=== PATIENT | female | born 1960 | race Caucasian/White ===

== ENCOUNTER 2017-03-04 12:49 | Outpatient (CLI) | payer OTHER ==
--- NOTE | 2017-03-04 14:21 | RAD ---
CHEST PA AND LATERAL 2 VIEWS: Date: 03/04/17 HISTORY: 56-year-old female with dyspnea. COMPARISON: 04/29/13. FINDINGS: Heart size is within normal limits. The lungs are clear. No pneumonia, edema, or pleural effusion. IMPRESSION: No acute intrathoracic disease. Stable from prior study. No evidence for pneumonia. POS: [facility]
== END 2017-03-04 12:50 | disposition home or self-care (01) ==
LOC: RAD 12:49
PROVIDERS: ATTEND Internal Medicine Pulmonary Disease
DX: R06.00 Dyspnea, unspecified (principal)
CPT/HCPCS: 71046

== ENCOUNTER 2019-04-29 12:30 | Emergency (ER) | payer OTHER ==
--- NOTE | 2019-04-29 13:25 | CT ---
CT BRAIN WITHOUT CONTRAST: HISTORY:Level 2 trauma FINDINGS: No evidence of acute infarct, hemorrhage, midline shift or abnormal extra-axial fluid collections is seen. The ventricular size is appropriate and the basilar cisterns are patent. The bony calvarium is intact. The visualized paranasal sinuses and mastoid air cells are well aerated. IMPRESSION: No CT evidence of acute intracranial process. Discussed over the telephone with ER physician Dr. Omar Parra at 1:21 PM
--- NOTE | 2019-04-29 13:27 | CT ---
CT CERVICAL SPINE WITH CORONAL AND SAGITTAL REFORMATIONS AND NO IV CONTRAST: HISTORY: Level 2 trauma, neck pain FINDINGS: Multilevel degenerative changes are present. There are postop changes of anterior spinal fusion with plate and screws in good position and alignment at C4-5-6 level. No fracture, subluxation or facet malalignment is identified. No prevertebral soft tissue swelling is apparent. The visualized lung apices are unremarkable. IMPRESSION: No CT evidence for fracture or traumatic subluxation. Discussed over the telephone with ER physician Dr. Omar Parra at 1:21 PM
--- NOTE | 2019-04-29 13:58 | CT ---
CT CHEST WITH IV CONTRAST CT ABDOMEN WITH IV CONTRAST CT PELVIS WITH IV CONTRAST CORONAL AND SAGITTAL REFORMATIONS OF THE THORACOLUMBAR SPINE: HISTORY: Level II trauma. Chest pain, abdominal pain, back pain. FINDINGS: No mediastinal hematoma is seen. No intimal flap is noted in the aorta. No pleural or pericardial e ffusions are identified. No pneumothoraces or pulmonary contusions are seen. There is a 9 mm low-de nsity lesion in the left lobe of the liver. There is a 9 mm low-density lesion in the left lobe of t he thyroid gland better visualized on the thyroid ultrasound of 02/06/2014. The liver, spleen, pancreas, adrenal glands, and kidneys are intact. The patient is post cholecystec kinza. No free air or free fluid is seen in the abdomen or pelvis. The patient is post hysterectomy as well. The small bowel loops are not abnormally dilated. A small fat-containing umbilical hernia is present. There are degenerative changes in the thoracolumbar spine and hip joints. No acute fracture or sublu xation is seen. There are postop changes of posterior spinal fusion and metallic hardware at L3, L4, and L5 levels. IMPRESSION: No CT evidence of acute intrathoracic or solid organ injury. Discussed over the telephone with the ER physician, Dr. Omar Parra, at 1:32 p.m. CODE CR POS: [facility]
== END 2019-04-29 14:10 | disposition home or self-care (01) ==
LOC: ERS 12:30
DX: S29.012A Strain of muscle and tendon of back wall of thorax, initial encounter (principal); S50.319A Abrasion of unspecified elbow, initial encounter; S40.029A Contusion of unspecified upper arm, initial encounter; S20.20XA Contusion of thorax, unspecified, initial encounter; G43.909 Migraine, unspecified, not intractable, without status migrainosus; M54.2 Cervicalgia; E66.9 Obesity, unspecified; F41.9 Anxiety disorder, unspecified; F32.9 Major depressive disorder, single episode, unspecified; V43.62XA Car passenger injured in collision with other type car in traffic accident, initial encounter
CPT/HCPCS: 70450; 71260; 72125; 74177

== ENCOUNTER 2019-09-19 06:31 | Outpatient (CLI) | payer OTHER ==
[2019-09-20 12:04] LABS: SARS-CoV-2 MS2 Positive; SARS-CoV-2 N Gene Negative; SARS-CoV-2 S Gene Negative; SARS-CoV-2 by NAA Not Detected (NotDetected); SARS-CoV-2 orf1ab Negative
== END 2019-09-19 06:32 | disposition home or self-care (01) ==
LOC: LABBT 06:31
PROVIDERS: ATTEND Internal Medicine
DX: Z01.812 Encounter for preprocedural laboratory examination (principal); Z11.59 Encounter for screening for other viral diseases; K52.9 Noninfective gastroenteritis and colitis, unspecified; R10.84 Generalized abdominal pain; R11.0 Nausea; Z86.010 Personal history of colon polyps
CPT/HCPCS: 87635; U0003

== ENCOUNTER 2019-09-22 06:07 | Day surgery (SDC) | payer OTHER ==
[2019-09-15 12:16] VITALS: BMI 53.1
[2019-09-22] MEDS ORDERED: PROPOFOL 200 MG/20 ML VIAL ONE (09:47)
[2019-09-22] MEDS ORDERED: Lidocaine 1% PF 5 ML VIAL ONE (09:47)
--- NOTE | 2019-09-22 10:05 | OP ---
DATE OF PROCEDURE: 09/22/2019 CREDIT INTERVIEWER SURGEON: None. PROCEDURES PERFORMED: 1. Esophagogastroduodenoscopy with biopsies. 2. Colonoscopy with biopsies and snare polypectomy. INDICATIONS: 1. Chronic diarrhea. 2. Generalized abdominal pain. 3. Nausea. 4. Personal history of colon polyps, with last colonoscopy in 2014. MEDICATIONS: See Anesthesia record. FINDINGS: After discussion of the risks, benefits, and alternatives of the procedure, informed consent was obtained and witnessed. Pre-endoscopic cardiopulmonary examination was satisfactory. Time-out was performed before sedation was achieved. Sedation was achieved with Anesthesia assistance in the endoscopy unit. A Pentax adult upper endoscope was placed into the oropharynx and passed through the cricopharyngeus under direct visualization. The esophageal mucosa appeared normal throughout with a normal-appearing Z-line. The endoscope was advanced into the stomach. Forward and retroflexed views of the entire gastric mucosa were obtained. In the gastric body, there was erosive gastritis, characterized by several shallow erosions, erythema, and friability. There was a small ulceration measuring about 6 mm in diameter, which was clean based and appears benign, also in this area of the gastric body along the greater curvature. Gastric biopsies were obtained to rule out H pylori infection. The endoscope was advanced through the pylorus and into the first and second portions of the duodenum, which appeared normal. Duodenal biopsies were obtained to rule out celiac disease. The upper endoscope was completely withdrawn and the patient was repositioned. Digital rectal exam was performed, which was unremarkable. A Pentax adult colonoscope was inserted into the anus and passed forward to the cecum in the usual fashion. The cecal base was identified by the appendiceal orifice as well as the ileocecal valve. The terminal ileum was intubated and the ileal mucosa appeared normal. The colonoscope was slowly withdrawn in a gradual and circumferential manner with careful examination of the entire colonic mucosa. The quality of the prep was good. In the transverse colon, there were 3 sessile polyps measuring from 2 to 6 mm in diameter. These were all completely removed with cold snare and retrieved for pathology. In the sigmoid colon, there was one other polyp measuring 2 mm in diameter. This was completely removed with cold snare and retrieved for pathology. There is some mild diverticulosis in the sigmoid colon. The colonic mucosa otherwise appears normal throughout. I obtained random biopsies from the right and left side of the colon to rule out microscopic colitis. Retroflexion in the rectum was unremarkable. The colonoscope was completely withdrawn and the patient allowed to recover. The patient tolerated the procedure well. There were no immediate postprocedure complications. IMPRESSION: 1. Erosive gastritis with small ulcer in the gastric body along the greater curvature. Gastric biopsies obtained to rule out H pylori. 2. Otherwise, normal EGD, with duodenal biopsies obtained to rule out celiac disease. 3. Three small transverse colon polyps, all completely removed with cold snare and retrieved for pathology. 4. One small sigmoid colon polyp, completely removed with cold snare and retrieved for pathology. 5. Mild sigmoid diverticulosis. 6. Otherwise, normal colonoscopy to the terminal ileum, with random colon biopsies obtained to rule out microscopic colitis. RECOMMENDATIONS: 1. Follow up biopsy results. 2. Start pantoprazole 40 mg twice daily. 3. Avoid nonsteroidal anti-inflammatory drugs. 4. Follow up in the [facility] in 1 month with myself or physician practice assistant. 5. Repeat colonoscopy interval to be based on pathology results. Job ID: [id number]
== END 2019-09-22 09:35 | disposition home or self-care (01) ==
LOC: SDC 06:07
PROVIDERS: ATTEND Internal Medicine
DX: D12.3 Benign neoplasm of transverse colon (principal); K57.30 Diverticulosis of large intestine without perforation or abscess without bleeding; K25.9 Gastric ulcer, unspecified as acute or chronic, without hemorrhage or perforation; K29.60 Other gastritis without bleeding; K52.9 Noninfective gastroenteritis and colitis, unspecified; R11.0 Nausea; R10.84 Generalized abdominal pain; E07.9 Disorder of thyroid, unspecified; F41.9 Anxiety disorder, unspecified; F32.9 Major depressive disorder, single episode, unspecified; E66.9 Obesity, unspecified; Z68.43 Body mass index [BMI] 50.0-59.9, adult; Z86.010 Personal history of colon polyps; Z79.899 Other long term (current) drug therapy; Z88.5 Allergy status to narcotic agent
CPT/HCPCS: 88305; 88312; J2704

== ENCOUNTER 2022-04-04 07:24 | Outpatient (CLI) | payer BC | END 2022-04-04 07:25 | disposition home or self-care (01) | LOC: TBSIIMAG 07:24 | PROVIDERS: ATTEND Orthopaedic Surgery | DX: M54.50 Low back pain, unspecified (principal); M54.6 Pain in thoracic spine | CPT/HCPCS: 72146; 72148 ==

== ENCOUNTER 2024-12-14 13:13 | Inpatient (IN) | payer BC ==
[2024-12-14] MEDS ORDERED: Acetaminophen 325 MG TAB PO PRN (17:00)
[2024-12-14] MEDS ORDERED: Ondansetron PF 4 MG/2 ML Vial IVP PRN (17:00)
[2024-12-14] MEDS ORDERED: Bisacodyl 10 MG SUPP PR PRN (17:00)
[2024-12-14] MEDS ORDERED: Electrolyte Replacement Protocol 1 EACH FS ONE (17:10)
[2024-12-14 17:29] LABS: Actual Bicarbonate (HCO3a) 19.5 mEq/L (22-28); Base Excess (BEa) -7.6 mEq/L (-2.0 to +3.0); CO2 Tension 46.6 mmHg (35.0-45.0); Calcium, Ionized (arterial) 1.30 mmol/L (1.12-1.30); Hematocrit-ABG 32 % (36.0-47.0); Hemoglobin (Hb) 11.0 g/dL (12.0-16.0); O2 Tension (PaO2), arterial 88.7 mmHg (> 80.0); Potassium - ABG Lab 4.21 mmol/L (3.70-5.30); pH, Arterial 7.240 (7.35-7.45)
[2024-12-14 17:30] LABS: Puncture Site Right Radial artery
[2024-12-14] MEDS ORDERED: Fentanyl BOLUS 100 ML IVPB PRN (17:30)
[2024-12-14] MEDS ORDERED: Propofol BOLUS 1,000 MG/100 ML VIAL IV PRN (17:30)
[2024-12-14] MEDS ORDERED: DISCONTINUE PREVIOUS NARCOTIC PAIN MEDICATIONS AND BENZODIAZEPINES FS SCH (17:30)
[2024-12-14 17:31] LABS: ALV-art Gradient 138.250 mmHg (0-20)
[2024-12-14 18:34] VITALS: BMI 56.2
[2024-12-14 19:50] LABS: ALT (SGPT) 22 U/L (Less than 34); AST (SGOT) 32 U/L (11-34); Albumin 2.6 g/dL (3.1-4.5); Alkaline Phosphatase 140 U/L (40-110); Anion Gap 17 mmol/L (10-20); BUN (Urea Nitrogen) 66 mg/dL (9.8-20.1); Bilirubin, Total 0.5 mg/dL (0.3-1.2); Calc. Creatinine Clearance 44 mL/min (70-130); Calcium 9.7 mg/dL (7.8-10.44); Carbon Dioxide 19 mmol/L (23-31); Chloride 106 mmol/L (98-107); Globulin 3.9 g/dL (2.4-3.5); Glucose 162 mg/dL (80-115); Magnesium 2.4 mg/dL (1.6-2.6); Potassium 4.4 mmol/L (3.5-5.1); Sodium 138 mmol/L (136-145)
[2024-12-14 20:22] LABS: INR-International Normal Ratio 1.2; PTT 25.2 sec (22.9-36.1); Prothrombin Time 15.5 sec (12.0-14.7)
[2024-12-14] MEDS: Famotidine/PF 20 mg/2ml Vial SLOW IVP SCH (21:48)
[2024-12-15 05:20] LABS: #Basophils 0.06 10x3/uL (0.0-0.2); #Eosinophils 0.08 10x3/uL (0.0-0.7); #Monocytes 1.30 10x3/uL (0.11-0.59); #Neutrophils 18.05 10x3/uL (1.40-6.50); %Basophils 0.3 % (0.0-1.0); %Eosinophils 0.4 % (0.0-10.0); %Lymphocytes 7.5 % (21.0-51.0); %Monocytes 6.0 % (0.0-10.0); %Neutrophils 83.3 % (42.0-75.0); Hematocrit 30.6 % (36.0-47.0); Hemoglobin 9.5 g/dL (12.0-16.0); Mean Corpuscular Hemoglobin 30.4 pg (27.0-31.0); Mean Corpuscular Volume 98.1 fL (78.0-98.0); Platelet Count 256 10x3/uL (130-400); Red Blood Cell (RBC) Count 3.12 mill/uL (4.20-5.40); White Blood Cell (WBC) Count 21.67 10x3/uL (4.8-10.8)
[2024-12-15 05:40] LABS: Anion Gap 13 mmol/L (10-20); BUN (Urea Nitrogen) 64 mg/dL (9.8-20.1); Calc. Creatinine Clearance 45 mL/min (70-130); Calcium 9.2 mg/dL (7.8-10.44); Carbon Dioxide 20 mmol/L (23-31); Chloride 108 mmol/L (98-107); Glucose 144 mg/dL (80-115); Potassium 4.2 mmol/L (3.5-5.1); Sodium 137 mmol/L (136-145)
[2024-12-15 07:38] LABS: Actual Bicarbonate (HCO3a) 20.2 mEq/L (22-28); Base Excess (BEa) -4.7 mEq/L (-2.0 to +3.0); CO2 Tension 36.8 mmHg (35.0-45.0); Calcium, Ionized (arterial) 1.29 mmol/L (1.12-1.30); Hematocrit-ABG 31 % (36.0-47.0); Hemoglobin (Hb) 10.7 g/dL (12.0-16.0); Potassium - ABG Lab 4.41 mmol/L (3.70-5.30); pH, Arterial 7.358 (7.35-7.45)
[2024-12-15 07:40] LABS: ALV-art Gradient 322.400 mmHg (0-20); O2 Tension (PaO2), arterial 59.4 mmHg (> 80.0); Puncture Site Right Radial artery
[2024-12-15] MEDS: Enoxaparin 30 MG (0.3 mL) SYRINGE SC SCH (07:57)
[2024-12-15] MEDS: Pantoprazole 40 MG VIAL IVP SCH (07:57)
[2024-12-15] MEDS: Furosemide 40 MG (4 mL) VIAL SLOW IVP SCH (09:17)
[2024-12-15 15:23] LABS: Bacteria/HPF 1+ HPF (None Seen); Glucose, Urine (Dipstick) Normal (Negative); Leukocyte Negative Leu/uL (Negative); Protein, Urine (Dipstick) Negative (Neg-Trace); RBC/HPF 0-3 HPF (0-3); Specific Gravity, Urine 1.010 (1.002-1.036); WBC/HPF 0-3 HPF (0-3)
[2024-12-15] MEDS: Furosemide 40 MG (4 mL) VIAL IVP SCH (16:16)
[2024-12-16 05:10] LABS: #Basophils 0.06 10x3/uL (0.0-0.2); #Eosinophils 0.08 10x3/uL (0.0-0.7); #Monocytes 1.09 10x3/uL (0.11-0.59); #Neutrophils 17.19 10x3/uL (1.40-6.50); %Basophils 0.3 % (0.0-1.0); %Eosinophils 0.4 % (0.0-10.0); %Lymphocytes 6.3 % (21.0-51.0); %Monocytes 5.4 % (0.0-10.0); %Neutrophils 85.2 % (42.0-75.0); Hematocrit 34.2 % (36.0-47.0); Hemoglobin 10.6 g/dL (12.0-16.0); Mean Corpuscular Hemoglobin 30.5 pg (27.0-31.0); Mean Corpuscular Volume 98.6 fL (78.0-98.0); Platelet Count 249 10x3/uL (130-400); Red Blood Cell (RBC) Count 3.47 mill/uL (4.20-5.40); White Blood Cell (WBC) Count 20.18 10x3/uL (4.8-10.8)
[2024-12-16 05:47] LABS: ALT (SGPT) 19 U/L (Less than 34); AST (SGOT) 19 U/L (11-34); Albumin 2.3 g/dL (3.1-4.5); Alkaline Phosphatase 106 U/L (40-110); Anion Gap 17 mmol/L (10-20); BUN (Urea Nitrogen) 67 mg/dL (9.8-20.1); Bilirubin, Total 0.3 mg/dL (0.3-1.2); Calc. Creatinine Clearance 39 mL/min (70-130); Calcium 9.4 mg/dL (7.8-10.44); Carbon Dioxide 20 mmol/L (23-31); Chloride 106 mmol/L (98-107); Globulin 3.8 g/dL (2.4-3.5); Glucose 165 mg/dL (80-115); Magnesium 2.4 mg/dL (1.6-2.6); Potassium 4.4 mmol/L (3.5-5.1); Sodium 139 mmol/L (136-145)
[2024-12-16 06:32] LABS: Actual Bicarbonate (HCO3a) 20.5 mEq/L (22-28); Base Excess (BEa) -6.0 mEq/L (-2.0 to +3.0); CO2 Tension 45.0 mmHg (35.0-45.0); Calcium, Ionized (arterial) 1.29 mmol/L (1.12-1.30); Hematocrit-ABG 32 % (36.0-47.0); Hemoglobin (Hb) 10.9 g/dL (12.0-16.0); O2 Tension (PaO2), arterial 70.0 mmHg (> 80.0); Potassium - ABG Lab 4.02 mmol/L (3.70-5.30); pH, Arterial 7.277 (7.35-7.45)
[2024-12-16 06:35] LABS: ALV-art Gradient 301.550 mmHg (0-20); Puncture Site Right Radial artery
[2024-12-16] MEDS: Metoclopramide HCl 10 MG (2 mL) VIAL IVP PRN (11:35)
[2024-12-16] MEDS ORDERED: Lactulose 20 GM (30 mL) UDCUP PO PRN (12:02)
[2024-12-16] MEDS: Senokot S 8.6-50 MG TAB PER TUBE SCH ×2 (12:10→20:41)
[2024-12-16] MEDS: Albumin 25% 25 GM (100 mL) BOT IVPB SCH ×2 (12:10→20:40)
[2024-12-16] MEDS: Furosemide 40 MG (4 mL) VIAL SLOW IVP SCH ×2 (12:11→21:24)
[2024-12-16] MEDS: Enoxaparin 30 MG (0.3 mL) SYRINGE SC SCH (20:40)
[2024-12-16] MEDS ORDERED: Senokot S 8.6-50 MG TAB PO SCH (21:00)
[2024-12-17 03:37] LABS: #Basophils Less than 0.03 10x3/uL (0.0-0.2); #Eosinophils Less than 0.03 10x3/uL (0.0-0.7); #Monocytes 0.68 10x3/uL (0.11-0.59); #Neutrophils 16.08 10x3/uL (1.40-6.50); %Basophils 0.1 % (0.0-1.0); %Eosinophils 0.0 % (0.0-10.0); %Lymphocytes 2.3 % (21.0-51.0); %Monocytes 3.9 % (0.0-10.0); %Neutrophils 93.1 % (42.0-75.0); Hematocrit 32.6 % (36.0-47.0); Hemoglobin 10.3 g/dL (12.0-16.0); Mean Corpuscular Hemoglobin 28.7 pg (27.0-31.0); Mean Corpuscular Volume 90.8 fL (78.0-98.0); Platelet Count 453 10x3/uL (130-400); Red Blood Cell (RBC) Count 3.59 mill/uL (4.20-5.40); White Blood Cell (WBC) Count 17.27 10x3/uL (4.8-10.8)
[2024-12-17 06:18] LABS: Chloride 107 mmol/L (98-107); Potassium 4.0 mmol/L (3.5-5.1); Sodium 139 mmol/L (136-145)
[2024-12-17 06:19] LABS: Calcium 9.3 mg/dL (7.8-10.44); Glucose 136 mg/dL (80-115)
[2024-12-17 06:21] LABS: Anion Gap 14 mmol/L (10-20); Carbon Dioxide 22 mmol/L (23-31)
[2024-12-17 06:23] LABS: BUN (Urea Nitrogen) 81 mg/dL (9.8-20.1); Calc. Creatinine Clearance 36 mL/min (70-130)
[2024-12-17] MEDS: Bisacodyl 10 MG SUPP PR SCH (08:15)
[2024-12-17 09:13] LABS: Actual Bicarbonate (HCO3v) 22.8 mEq/L (22-28); Base Excess -4.2 mEq/L (-2.0 to +3.0); Calcium, Ionized (venous) 1.22 mmol/L (1.16-1.32); Chloride (VBG) 106 mmol/L (98-106); Hematocrit-VBG 34 % (36.0-47.0); Hemoglobin (Hb) 11.4 g/dL (11.7-16.1); Potassium (VBG) 4.25 mmol/L (3.70-5.30); Sodium 142 mmol/L (133-146)
[2024-12-17] MEDS: Scopolamine 1 mg/72 hour Patch TD SCH (09:30)
[2024-12-17] MEDS ORDERED: Midazolam In 0.9 % NaCl/PF 100 ML IVPB SCH (16:45)
[2024-12-17] MEDS: Furosemide 40 MG (4 mL) VIAL SLOW IVP SCH (17:35)
[2024-12-18 04:10] LABS: #Basophils 0.03 10x3/uL (0.0-0.2); #Eosinophils 0.13 10x3/uL (0.0-0.7); #Monocytes 0.79 10x3/uL (0.11-0.59); #Neutrophils 16.48 10x3/uL (1.40-6.50); %Basophils 0.2 % (0.0-1.0); %Eosinophils 0.7 % (0.0-10.0); %Lymphocytes 5.0 % (21.0-51.0); %Monocytes 4.2 % (0.0-10.0); %Neutrophils 87.3 % (42.0-75.0); Hematocrit 32.5 % (36.0-47.0); Hemoglobin 10.1 g/dL (12.0-16.0); Mean Corpuscular Hemoglobin 30.6 pg (27.0-31.0); Mean Corpuscular Volume 98.5 fL (78.0-98.0); Platelet Count 228 10x3/uL (130-400); Red Blood Cell (RBC) Count 3.30 mill/uL (4.20-5.40); White Blood Cell (WBC) Count 18.88 10x3/uL (4.8-10.8)
[2024-12-18 04:35] LABS: Anion Gap 17 mmol/L (10-20); BUN (Urea Nitrogen) 86 mg/dL (9.8-20.1); Calc. Creatinine Clearance 36 mL/min (70-130); Calcium 9.3 mg/dL (7.8-10.44); Carbon Dioxide 21 mmol/L (23-31); Chloride 108 mmol/L (98-107); Glucose 177 mg/dL (80-115); Potassium 4.1 mmol/L (3.5-5.1); Sodium 142 mmol/L (136-145)
[2024-12-18] MEDS: Enoxaparin 30 MG (0.3 mL) SYRINGE SC SCH (09:19)
[2024-12-18] MEDS: Furosemide 40 MG (4 mL) VIAL SLOW IVP SCH ×2 (11:10→17:23)
[2024-12-18] MEDS ORDERED: Dextrose 50% Abboject 50 ML SYRINGE SLOW IVP PRN (12:03)
[2024-12-18] MEDS ORDERED: Glucagon 1 MG/ML KIT IM PRN (12:03)
[2024-12-19] MEDS: Furosemide 40 MG (4 mL) VIAL SLOW IVP SCH (05:43)
[2024-12-19 06:05] LABS: #Basophils 0.04 10x3/uL (0.0-0.2); #Eosinophils 0.23 10x3/uL (0.0-0.7); #Monocytes 1.10 10x3/uL (0.11-0.59); #Neutrophils 19.31 10x3/uL (1.40-6.50); %Basophils 0.2 % (0.0-1.0); %Eosinophils 1.0 % (0.0-10.0); %Lymphocytes 5.0 % (21.0-51.0); %Monocytes 5.0 % (0.0-10.0); %Neutrophils 87.1 % (42.0-75.0); Hematocrit 32.7 % (36.0-47.0); Hemoglobin 10.0 g/dL (12.0-16.0); Mean Corpuscular Hemoglobin 30.2 pg (27.0-31.0); Mean Corpuscular Volume 98.8 fL (78.0-98.0); Platelet Count 276 10x3/uL (130-400); Red Blood Cell (RBC) Count 3.31 mill/uL (4.20-5.40); White Blood Cell (WBC) Count 22.16 10x3/uL (4.8-10.8)
[2024-12-19 06:20] LABS: Anion Gap 15 mmol/L (10-20); BUN (Urea Nitrogen) 88 mg/dL (9.8-20.1); Calc. Creatinine Clearance 38 mL/min (70-130); Calcium 9.3 mg/dL (7.8-10.44); Carbon Dioxide 24 mmol/L (23-31); Chloride 109 mmol/L (98-107); Glucose 136 mg/dL (80-115); Potassium 4.1 mmol/L (3.5-5.1); Sodium 144 mmol/L (136-145)
[2024-12-19] MEDS: Heparin 5,000 UNITS/ML VIAL SC SCH (14:57)
[2024-12-20 06:03] LABS: #Basophils 0.06 10x3/uL (0.0-0.2); #Eosinophils 4.00 10x3/uL (0.0-0.7); #Monocytes 1.03 10x3/uL (0.11-0.59); #Neutrophils 16.02 10x3/uL (1.40-6.50); %Basophils 0.3 % (0.0-1.0); %Eosinophils 17.2 % (0.0-10.0); %Lymphocytes 8.1 % (21.0-51.0); %Monocytes 4.4 % (0.0-10.0); %Neutrophils 68.6 % (42.0-75.0); Hematocrit 31.5 % (36.0-47.0); Hemoglobin 9.8 g/dL (12.0-16.0); Mean Corpuscular Hemoglobin 30.3 pg (27.0-31.0); Mean Corpuscular Volume 97.5 fL (78.0-98.0); Platelet Count 321 10x3/uL (130-400); Red Blood Cell (RBC) Count 3.23 mill/uL (4.20-5.40); White Blood Cell (WBC) Count 23.32 10x3/uL (4.8-10.8)
[2024-12-20 06:26] LABS: Anion Gap 15 mmol/L (10-20); BUN (Urea Nitrogen) 83 mg/dL (9.8-20.1); Calc. Creatinine Clearance 37 mL/min (70-130); Calcium 9.3 mg/dL (7.8-10.44); Carbon Dioxide 24 mmol/L (23-31); Chloride 109 mmol/L (98-107); Glucose 106 mg/dL (80-115); Potassium 3.3 mmol/L (3.5-5.1); Sodium 145 mmol/L (136-145)
[2024-12-20 12:30] VITALS: BMI 55.5
[2024-12-21 03:22] LABS: #Basophils 0.06 10x3/uL (0.0-0.2); #Eosinophils 4.12 10x3/uL (0.0-0.7); #Monocytes 1.03 10x3/uL (0.11-0.59); #Neutrophils 16.72 10x3/uL (1.40-6.50); %Basophils 0.2 % (0.0-1.0); %Eosinophils 16.8 % (0.0-10.0); %Lymphocytes 8.9 % (21.0-51.0); %Monocytes 4.2 % (0.0-10.0); %Neutrophils 68.5 % (42.0-75.0); Hematocrit 30.7 % (36.0-47.0); Hemoglobin 9.4 g/dL (12.0-16.0); Mean Corpuscular Hemoglobin 30.4 pg (27.0-31.0); Mean Corpuscular Volume 99.4 fL (78.0-98.0); Platelet Count 333 10x3/uL (130-400); Red Blood Cell (RBC) Count 3.09 mill/uL (4.20-5.40); White Blood Cell (WBC) Count 24.46 10x3/uL (4.8-10.8)
[2024-12-21 03:43] LABS: Anion Gap 17 mmol/L (10-20); BUN (Urea Nitrogen) 82 mg/dL (9.8-20.1); Calc. Creatinine Clearance 42 mL/min (70-130); Calcium 8.9 mg/dL (7.8-10.44); Carbon Dioxide 23 mmol/L (23-31); Chloride 110 mmol/L (98-107); Glucose 129 mg/dL (80-115); Potassium 3.4 mmol/L (3.5-5.1); Sodium 147 mmol/L (136-145)
[2024-12-21 10:15] VITALS: BP 108/60
[2024-12-21 11:08] VITALS: TEMP 98.4
== END 2024-12-21 11:49 | disposition critical access hospital, planned readmission (94) | DRG 870 ==
LOC: CCU 16:58
PROVIDERS: ADMIT Hospitalist; ATTEND Internal Medicine
PROC: 4A133R1 Monitoring of Arterial Saturation, Peripheral, Percutaneous Approach (ICD-10-PCS; principal; 2024-12-14)
PROC: 3E03329 Introduction of Other Anti-infective into Peripheral Vein, Percutaneous Approach (ICD-10-PCS; 2024-12-14)
PROC: 5A1955Z Respiratory Ventilation, Greater than 96 Consecutive Hours (ICD-10-PCS; 2024-12-14)
PROC: 0DH67UZ Insertion of Feeding Device into Stomach, Via Natural or Artificial Opening (ICD-10-PCS; 2024-12-15)
PROC: 30233J1 Transfusion of Nonautologous Serum Albumin into Peripheral Vein, Percutaneous Approach (ICD-10-PCS; 2024-12-16)
DX: A41.9 Sepsis, unspecified organism (principal); I21.A1 Myocardial infarction type 2; J18.9 Pneumonia, unspecified organism; J80 Acute respiratory distress syndrome; N17.9 Acute kidney failure, unspecified; E87.20 Acidosis, unspecified; E87.1 Hypo-osmolality and hyponatremia; J44.1 Chronic obstructive pulmonary disease with (acute) exacerbation; J44.0 Chronic obstructive pulmonary disease with (acute) lower respiratory infection; Z68.43 Body mass index [BMI] 50.0-59.9, adult; R65.20 Severe sepsis without septic shock; Z51.5 Encounter for palliative care; E66.01 Morbid (severe) obesity due to excess calories; Z88.5 Allergy status to narcotic agent; G89.29 Other chronic pain; M54.9 Dorsalgia, unspecified; E03.9 Hypothyroidism, unspecified; F32.A Depression, unspecified; G43.909 Migraine, unspecified, not intractable, without status migrainosus; F41.9 Anxiety disorder, unspecified; R73.9 Hyperglycemia, unspecified; E87.6 Hypokalemia
CPT/HCPCS: 36415; 36416; 36600; 71045; 80048; 80053; 81001; 82805; 83735; 85025; 85610; 85730; 94002; 94003; 94640; 97139; J1308; J1644; J1650; J1940; J2060; J2250; J2470; J2543; J2704; J2765; J2919; J7050; P9047